=== PATIENT | male | born 1960 | race Caucasian/White ===

== ENCOUNTER → 2020-05-13 | Outpatient (CLI) | payer OTHER ==
[~2020-05-13] MED LIST: AMLODIPINE BESYL5 MG PO; ASPIRIN EC81 MG PO; FLOMAX 0.4 MG0.4 MG PO; FLOMAX0.4 MG PO; IV FLUIDS; NORCO 5-325 TA1 EACH PO; NORVASC10 MG PO; PHOSLO 667 MG667 MG PO; SODIUM BICARBO650 M1 PO; SODIUM BICARBO650 MG PO
== END ==
LOC: LAB 05:43
DX: N18.6 End stage renal disease (principal); Z76.82 Awaiting organ transplant status
CPT/HCPCS: 36415

== ENCOUNTER → 2020-10-20 | Outpatient (CLI) | payer OTHER | LOC: LAB 05:39 | DX: N18.6 End stage renal disease (principal) | CPT/HCPCS: 36415 ==

== ENCOUNTER → 2020-11-11 | Outpatient (CLI) | payer OTHER | LOC: LAB 06:10 | DX: N18.6 End stage renal disease (principal) | CPT/HCPCS: 36415 ==

== ENCOUNTER → 2020-12-15 | Outpatient (CLI) | payer OTHER | LOC: LAB 05:41 | DX: N18.6 End stage renal disease (principal); Z76.82 Awaiting organ transplant status | CPT/HCPCS: 36415 ==

== ENCOUNTER → 2021-01-18 | Outpatient (CLI) | payer OTHER | LOC: LAB 05:43 | DX: N18.6 End stage renal disease (principal) | CPT/HCPCS: 36415 ==

== ENCOUNTER → 2021-02-15 | Outpatient (CLI) | payer OTHER | LOC: LAB 05:44 | DX: Z01.812 Encounter for preprocedural laboratory examination (principal); N18.6 End stage renal disease; Z76.82 Awaiting organ transplant status | CPT/HCPCS: 36415 ==

== ENCOUNTER → 2021-03-25 | Outpatient (CLI) | payer OTHER ==
[2021-03-25 06:48] LABS: RED BLOOD COUNT 4.34 M/UL (4.20-5.50); WHITE BLOOD COUNT 4.6 K/UL (4.5-11.0)
[2021-03-28 21:11] LABS: CMV QUANT DNA PCR (PLASMA) Negative (Negative)
== END ==
LOC: LAB 06:11
DX: Z48.22 Encounter for aftercare following kidney transplant (principal); Z94.0 Kidney transplant status; D84.9 Immunodeficiency, unspecified; Z51.81 Encounter for therapeutic drug level monitoring; Z79.899 Other long term (current) drug therapy; R39.9 Unspecified symptoms and signs involving the genitourinary system; D64.9 Anemia, unspecified; R79.89 Other specified abnormal findings of blood chemistry
CPT/HCPCS: 36415; 80069; 80197; 82570; 83735; 84156; 85025; 87497

== ENCOUNTER → 2021-06-07 | Outpatient (CLI) | payer OTHER ==
[2021-06-07 06:26] LABS: HEMOGLOBIN 11.9 gm/dl (14.0-17.5); RED BLOOD COUNT 4.05 M/UL (4.20-5.50); WHITE BLOOD COUNT 2.2 K/UL (4.5-11.0)
== END ==
LOC: LAB 05:44
PROVIDERS: Internal Medicine
DX: Z51.81 Encounter for therapeutic drug level monitoring (principal); D64.9 Anemia, unspecified; R39.9 Unspecified symptoms and signs involving the genitourinary system; R79.89 Other specified abnormal findings of blood chemistry; Z94.0 Kidney transplant status; Z79.899 Other long term (current) drug therapy
CPT/HCPCS: 36415; 80069; 80197; 82570; 83735; 84156; 85025; 87086

== ENCOUNTER → 2021-06-14 | Outpatient (CLI) | payer OTHER ==
[2021-06-14 06:45] LABS: HEMOGLOBIN 12.1 gm/dl (14.0-17.5); WHITE BLOOD COUNT 2.8 K/UL (4.5-11.0)
[2021-06-15 08:13] LABS: CALCIUM, SERUM 8.9 mg/dL (8.6-10.2); CREATININE, SERUM 1.29 mg/dL (0.76-1.27); MAGNESIUM 1.9 mg/dL (1.6-2.3); PHOSPHORUS, SERUM 3.2 mg/dL (2.8-4.1); POTASSIUM, SERUM 4.5 mmol/L (3.5-5.2)
[2021-06-15 15:14] LABS: TACROLIMUS BY IMMUNOASSAY 8.1 ng/mL (2.0-20.0)
== END ==
LOC: LAB 05:48
PROVIDERS: Internal Medicine
DX: Z48.22 Encounter for aftercare following kidney transplant (principal); Z51.81 Encounter for therapeutic drug level monitoring; Z79.899 Other long term (current) drug therapy; R39.9 Unspecified symptoms and signs involving the genitourinary system; D64.9 Anemia, unspecified; R79.89 Other specified abnormal findings of blood chemistry
CPT/HCPCS: 36415; 80069; 80197; 82570; 83735; 84156; 85025; 87086

== ENCOUNTER → 2021-06-21 | Outpatient (CLI) | payer OTHER ==
[2021-06-21 06:54] LABS: WHITE BLOOD COUNT 1.7 K/UL (4.5-11.0)
[2021-06-21 07:02] LABS: HEMOGLOBIN 13.2 gm/dl (14.0-17.5); RED BLOOD COUNT 4.33 M/UL (4.20-5.50)
[2021-06-22 07:11] LABS: CALCIUM, SERUM 9.3 mg/dL (8.6-10.2); CREATININE, SERUM 1.29 mg/dL (0.76-1.27); MAGNESIUM 1.9 mg/dL (1.6-2.3); POTASSIUM, SERUM 4.4 mmol/L (3.5-5.2)
[2021-06-22 16:16] LABS: TACROLIMUS BY IMMUNOASSAY 8.4 ng/mL (2.0-20.0)
== END ==
LOC: LAB 05:38
PROVIDERS: Internal Medicine
DX: D64.9 Anemia, unspecified (principal); R79.89 Other specified abnormal findings of blood chemistry; R39.9 Unspecified symptoms and signs involving the genitourinary system; Z94.0 Kidney transplant status; Z51.81 Encounter for therapeutic drug level monitoring; Z79.899 Other long term (current) drug therapy
CPT/HCPCS: 36415; 80069; 80197; 82570; 83735; 84156; 85025; 87086

== ENCOUNTER → 2021-06-28 | Outpatient (CLI) | payer OTHER ==
[2021-06-28 06:25] LABS: HEMOGLOBIN 13.3 gm/dl (14.0-17.5); RED BLOOD COUNT 4.45 M/UL (4.20-5.50)
[2021-06-28 08:17] LABS: WHITE BLOOD COUNT 1.3 K/UL (4.5-11.0)
[2021-06-29 10:14] LABS: CALCIUM, SERUM 8.8 mg/dL (8.6-10.2); CREATININE, SERUM 1.44 mg/dL (0.76-1.27); PHOSPHORUS, SERUM 3.8 mg/dL (2.8-4.1); POTASSIUM, SERUM 4.4 mmol/L (3.5-5.2)
[2021-06-29 14:14] LABS: TACROLIMUS BY IMMUNOASSAY 8.5 ng/mL (2.0-20.0)
== END ==
LOC: LAB 05:39
PROVIDERS: Internal Medicine
DX: Z48.22 Encounter for aftercare following kidney transplant (principal); Z51.81 Encounter for therapeutic drug level monitoring; Z79.899 Other long term (current) drug therapy; D64.9 Anemia, unspecified; R39.9 Unspecified symptoms and signs involving the genitourinary system; R79.89 Other specified abnormal findings of blood chemistry; Z94.0 Kidney transplant status
CPT/HCPCS: 36415; 80069; 80197; 82570; 83735; 84156; 85025; 87086

== ENCOUNTER → 2021-07-05 | Outpatient (CLI) | payer OTHER ==
[2021-07-05 06:32] LABS: HEMOGLOBIN 13.8 gm/dl (14.0-17.5); RED BLOOD COUNT 4.6 M/UL (4.20-5.50); WHITE BLOOD COUNT 2.5 K/UL (4.5-11.0)
== END ==
LOC: LAB 05:39
PROVIDERS: Internal Medicine
DX: Z48.22 Encounter for aftercare following kidney transplant (principal); Z51.81 Encounter for therapeutic drug level monitoring; D64.9 Anemia, unspecified; R39.9 Unspecified symptoms and signs involving the genitourinary system; R79.89 Other specified abnormal findings of blood chemistry; Z94.0 Kidney transplant status; Z79.899 Other long term (current) drug therapy
CPT/HCPCS: 36415; 80069; 80197; 82570; 83735; 84156; 85025; 87086

== ENCOUNTER → 2021-07-28 | Outpatient (CLI) | payer OTHER ==
[2021-07-28 06:28] LABS: HEMOGLOBIN 14.9 gm/dl (14.0-17.5); RED BLOOD COUNT 5.02 M/UL (4.20-5.50); WHITE BLOOD COUNT 6.8 K/UL (4.5-11.0)
== END ==
LOC: LAB 05:34
PROVIDERS: Internal Medicine
DX: R39.9 Unspecified symptoms and signs involving the genitourinary system (principal); R79.89 Other specified abnormal findings of blood chemistry; Z94.0 Kidney transplant status; Z51.81 Encounter for therapeutic drug level monitoring; Z79.899 Other long term (current) drug therapy; D64.9 Anemia, unspecified
CPT/HCPCS: 36415; 80069; 80197; 82570; 83735; 84156; 85025; 87086

== ENCOUNTER → 2021-08-23 | Outpatient (CLI) | payer OTHER ==
[2021-08-23 06:48] LABS: HEMOGLOBIN 14.6 gm/dl (14.0-17.5); RED BLOOD COUNT 4.95 M/UL (4.20-5.50)
== END ==
LOC: LAB 05:43
PROVIDERS: Internal Medicine
DX: Z48.22 Encounter for aftercare following kidney transplant (principal); Z51.81 Encounter for therapeutic drug level monitoring; R39.9 Unspecified symptoms and signs involving the genitourinary system; D64.9 Anemia, unspecified; R79.89 Other specified abnormal findings of blood chemistry; Z94.0 Kidney transplant status; Z79.899 Other long term (current) drug therapy
CPT/HCPCS: 36415; 80069; 80197; 82570; 83735; 84156; 85025; 87086

== ENCOUNTER → 2021-09-06 | Outpatient (CLI) | payer OTHER ==
[2021-09-06 06:07] LABS: HEMOGLOBIN 14.6 gm/dl (14.0-17.5); RED BLOOD COUNT 4.95 M/UL (4.20-5.50); WHITE BLOOD COUNT 5.1 K/UL (4.5-11.0)
== END ==
LOC: LAB 05:33
PROVIDERS: Internal Medicine
DX: Z48.22 Encounter for aftercare following kidney transplant (principal); Z51.81 Encounter for therapeutic drug level monitoring; Z79.899 Other long term (current) drug therapy; R39.9 Unspecified symptoms and signs involving the genitourinary system; D64.9 Anemia, unspecified; R79.89 Other specified abnormal findings of blood chemistry; Z94.0 Kidney transplant status
CPT/HCPCS: 36415; 80069; 80197; 82570; 83735; 84156; 85025; 87086

== ENCOUNTER → 2021-10-04 | Outpatient (CLI) | payer BC ==
[2021-10-04 06:10] LABS: HEMOGLOBIN 14.7 gm/dl (14.0-17.5); RED BLOOD COUNT 4.91 M/UL (4.20-5.50); WHITE BLOOD COUNT 5.5 K/UL (4.5-11.0)
== END ==
LOC: LAB 05:40
PROVIDERS: Internal Medicine
DX: R39.9 Unspecified symptoms and signs involving the genitourinary system (principal); D64.9 Anemia, unspecified; R79.89 Other specified abnormal findings of blood chemistry; Z94.0 Kidney transplant status
CPT/HCPCS: 80069; 80197; 81001; 82570; 83735; 84156; 85025; 87086

== ENCOUNTER → 2021-12-07 | Outpatient (CLI) | payer BC ==
[2021-12-07 06:19] LABS: HEMOGLOBIN 13.6 gm/dl (14.0-17.5); RED BLOOD COUNT 4.64 M/UL (4.20-5.50)
== END ==
LOC: LAB 05:46
PROVIDERS: Internal Medicine
DX: D64.9 Anemia, unspecified (principal); R39.9 Unspecified symptoms and signs involving the genitourinary system; R79.89 Other specified abnormal findings of blood chemistry; Z94.0 Kidney transplant status
CPT/HCPCS: 36415; 80069; 80197; 82570; 83735; 84156; 85025; 87086

== ENCOUNTER → 2021-12-30 | Outpatient (CLI) | payer BC | LOC: LAB 05:38 | PROVIDERS: Internal Medicine Nephrology | DX: Z48.22 Encounter for aftercare following kidney transplant (principal); Z94.0 Kidney transplant status | CPT/HCPCS: 36415; 80048; 80197 ==